=== PATIENT | female | born 1985 | race Hispanic/Latino ===

== ENCOUNTER 2022-10-23 04:00 | Inpatient (IN) | payer MEDICAID, SELFPAY ==
[2022-10-23 04:31] VITALS: BMI 25.0
[2022-10-23] MEDS ORDERED: Lidocaine 1% (PF) 30 ML VIAL SC PRN (05:00)
[2022-10-23] MEDS ORDERED: Ondansetron PF 4 MG/2 ML Vial IVP PRN ×2 (05:00→06:19)
[2022-10-23] MEDS ORDERED: Promethazine HCl 25 MG/ML VIAL IM PRN ×3 (05:00→16:29)
[2022-10-23] MEDS ORDERED: NS w/ Oxytocin 30 units 500 ML IV SCH (05:00)
[2022-10-23] MEDS ORDERED: NS w/ Oxytocin 30 units 500 ML IVPB SCH (05:00)
[2022-10-23] MEDS ORDERED: hydrALAZINE 20 MG/ML VIAL SLOW IVP PRN ×2 (05:00→16:29)
[2022-10-23 05:20] LABS: Hemoglobin 12.7 g/dL (12.0-15.5); Mean Corpuscular HGB CONC 35.2 g/dL (32.0-36.0); Mean Corpuscular Hemoglobin 30.1 pg (27.0-33.0); Mean Corpuscular Volume 85.5 fl (81.6-98.3); Mean Platelet Volume 11.1 fl (7.4-10.4); Platelet Count 207 10x3/uL (150-450); RBC Distribution Width 12.5 % (11.5-14.5); Red Blood Cell (RBC) Count 4.22 10x6/uL (3.90-5.03); White Blood Cell (WBC) Count 11.1 10x3/uL (3.5-10.5)
[2022-10-23] MEDS: CEFAZOLIN 2 GM in Sodium Chloride 0.9% 100 ML IVPB SCH ×2 (05:30→11:47)
[2022-10-23] MEDS ORDERED: Fentanyl 2 mcg/Bup 0.1% Cadd 100 ML ONE (05:39)
[2022-10-23 06:06] LABS: HBSAg Index 0.16 S/CO (0-0.99); Hep B Surf Ag Non-Reactive S/CO (NonReactive)
[2022-10-23 06:07] LABS: Syphilis Antibody Nonreactive (Nonreactive); Syphilis Antibody Index 0.03 S/CO (<1.00 Non-Reactive)
[2022-10-23] MEDS ORDERED: Moisturizing Cream (Eucerin) 113 GM JAR TOP PRN (06:19)
[2022-10-23] MEDS ORDERED: Acetaminophen 325 MG TAB PO PRN (06:19)
[2022-10-23] MEDS ORDERED: Naloxone HCl 0.4 mg/ml Vial IVP PRN ×2 (06:19)
[2022-10-23] MEDS ORDERED: diphenhydrAMINE 50 MG/ML VIAL IVP PRN (06:19)
[2022-10-23] MEDS ORDERED: Lactated Ringer's 500 ML IV PRN (06:19)
[2022-10-23] MEDS ORDERED: ePHEDrine Sulfate 50 MG/10 ML VIAL SLOW IVP PRN (06:19)
[2022-10-23] MEDS ORDERED: Communication Order-Pharmacy FS SCH (06:30)
[2022-10-23] MEDS ORDERED: Fentanyl 2 mcg/Bupivacaine 0.1% Cassette 100 ML EPIDURAL SCH (06:30)
[2022-10-23 08:33] LABS: SARS-CoV-2 NAA Rapid Test Not Detected (NotDetected)
[2022-10-23] MEDS ORDERED: Bupivacaine/Epinephrine 0.25% 30 ML VIAL ONE (14:00)
[2022-10-23] MEDS ORDERED: ePHEDrine Sulfate 50 MG/10 ML VIAL ONE (14:00)
[2022-10-23] MEDS ORDERED: Milk Of Magnesia 30 ML UDCUP PO PRN (16:29)
[2022-10-23] MEDS ORDERED: Boostrix 0.5 ML (Tdap) VIAL (>/=7 yrs of age) IM ONE (16:29)
[2022-10-23] MEDS ORDERED: Bisacodyl 10 MG SUPP PR PRN (16:29)
[2022-10-23] MEDS ORDERED: HYDROcodone/Acetaminophen 5/325 mg Tablet PO PRN (16:29)
[2022-10-23] MEDS ORDERED: diphenhydrAMINE 25 MG CAP PO PRN (16:29)
[2022-10-23] MEDS ORDERED: Lanolin Ointment 7 GM TUBE TOP PRN (16:29)
[2022-10-23] MEDS: Ferrous Sulfate 325 MG TAB PO SCH (20:44)
[2022-10-23] MEDS: Ibuprofen 800 MG TAB PO SCH (22:06)
[2022-10-23] MEDS: Docusate 100 MG CAP PO SCH (22:07)
[2022-10-24] MEDS: Ibuprofen 800 MG TAB PO SCH ×2 (05:13→09:00)
[2022-10-24] MEDS: Ferrous Sulfate 325 MG TAB PO SCH (07:13)
[2022-10-24] MEDS ORDERED: Prenatal Vitamin 1 TAB PO SCH (09:00)
[2022-10-24] MEDS: Docusate 100 MG CAP PO SCH (09:00)
[2022-10-24 11:33] VITALS: BP 109/68; TEMP 97.5
== END 2022-10-24 16:00 | disposition home or self-care (01) | DRG 807 ==
LOC: CSHLD/OP 04:00 → CSHLD 04:46 → CSHPP 15:45
PROVIDERS: ADMIT Family Medicine; ATTEND Family Medicine
PROC: 10E0XZZ Delivery of Products of Conception, External Approach (ICD-10-PCS; principal; 2022-10-23)
PROC: 0HQ9XZZ Repair Perineum Skin, External Approach (ICD-10-PCS; 2022-10-23)
DX: O42.02 Full-term premature rupture of membranes, onset of labor within 24 hours of rupture (principal); Z37.0 Single live birth; Z20.822 Contact with and (suspected) exposure to COVID-19; Z3A.38 38 weeks gestation of pregnancy; O99.824 Streptococcus B carrier state complicating childbirth; Z79.899 Other long term (current) drug therapy; O70.0 First degree perineal laceration during delivery; O69.81X0 Labor and delivery complicated by cord around neck, without compression, not applicable or unspecified; Z88.0 Allergy status to penicillin
CPT/HCPCS: 36415; 51702; 85027; 86780; 86850; 86900; 86901; 87340; 99285; J2590; J3490; U0002